=== PATIENT | male | born 1980 | race Caucasian/White ===

== ENCOUNTER 2022-12-01 08:41 | Emergency (ER) | payer OTHER, SELFPAY ==
--- NOTE | ~2022-12-01 | XR_ITS ---
EXAMINATION: XR_RIBSBI_CR DATE: 12/01/2022 09:38 INDICATION: Injury to the anterior right ribs TECHNIQUE: 3 views of the right ribs and 3 views of the left ribs were obtained. COMPARISON: Chest radiograph dated 05/16/2019 FINDINGS: No rib fractures identified. Lungs are clear with no focal airspace opacities, pulmonary edema, pleur al effusion or pneumothorax. Cardiomediastinal silhouette is normal. Old healed fracture deformity of the right clavicle. Findings the right acromioclavicular joint and tapering to the lateral head of t he right clavicle which could relate to prior trauma or surgery. Anchors likely for prior bicipital t enodesis along the proximal metadiaphyseal region of the right humerus. IMPRESSION: 1. No rib fracture or acute cardiopulmonary disease. Reviewed, dictated and finalized at location B.
[2022-12-01 08:45] VITALS: BP 149/84; PULSE 72; RESP 16; TEMP 36.1; O2SAT 99
--- NOTE | 2022-12-01 09:49 | ED.GENADULT ---
HPI - General Adult General Chief complaint: Trauma Stated complaint: chest injury from wakeboarding on 11/25 Time Seen by Provider: 12/01/22 08:56 Source: patient Mode of arrival: ambulatory Limitations: no limitations History of Present Illness HPI narrative: This is a 42-year-old male who presents to the ED with chief complaint of a right chest wall injury that occurred 6 days ago. He reports he was wakeboarding, caught an edge and landed with his chest on the water. States he was seen in urgent care initially and had x-rays that were negative. Reports mild improvement with steroid pack but is still having pain. Reports pain with deep breathing. Reports pain is on the right side front of the chest. Denies any further site of pain or injury. Denies abdominal pain or back pain. Related Data Allergies Allergy/AdvReac Type Severity Reaction Status Date / Time No Known Allergies Allergy Verified 12/01/22 09:13 Review of Systems Review of Systems: CONSTITUTIONAL: Denies fever, chills, or sweats. EYES: Denies visual changes, redness, or discharge. ENT: Denies rhinorrhea, congestion, sore throat, or otalgia. CARDIOVASCULAR: Denies chest pain, palpitations, or edema. RESPIRATORY: Denies cough or dyspnea. GASTROINTESTINAL: Denies abdominal pain, nausea, vomiting, or diarrhea. GENITOURINARY: Denies dysuria or hematuria. SKIN: Denies rash or itching. MUSCULOSKELETAL: Denies back pain, joint pain, or myalgia. NEUROLOGIC: Denies headache, numbness, dizziness, or weakness. PSYCHIATRIC: Denies anxiety or depression. [facility] Past Medical History Medical History (Updated 12/01/22 @ 10:01 by Ponce Sargent PA-C) Type 1 diabetes Surgical History Surgical History (System 09/27/19 @ 13:39 by Zaria Morris) H/O hand surgery right hand surgery in 2016 H/O shoulder surgery right History of mandibular surgery Family History Family History (System 09/27/19 @ 13:39 by Zaria Morris) Father Heart attack Mother Allergies Unknown Diabetes mellitus Father Family history of heart disease in male family member before age 55 Social History Social History (System 09/27/19 @ 13:39 by Zaria Morris) Smoking status: Current every day smoker Tobacco type: cigarettes Alcohol intake: never Exam Narrative: GENERAL: Well-appearing, well-nourished, and in no acute distress. HEAD: Normocephalic, atraumatic. EYES: PERRLA and EOMI. ENT: Nares clear, no rhinorrhea or epistaxis. Mucous membranes moist. Oropharynx without tonsillar hypertrophy exudate or other lesions. NECK: Supple. No adenopathy or masses. CHEST: No respiratory distress. Clear to auscultation. No wheezes rales or rhonchi. There is mild right inferior rib tenderness on the anterior side of the chest. No bruising or deformity. Equal chest expansion. Breath sounds throughout. HEART: Regular rate and rhythm. No murmur heard. Normal peripheral pulses. ABDOMEN: Soft, nontender, nondistended, normal active bowel sounds. MSK: Normal range of motion. No edema. SKIN: Warm, dry, no rash. NEURO: Alert and oriented x3. No focal deficits. PSYCH: Normal mood and affect. Course Vital Signs Vital signs: Vital Signs Temperature 97.0 F L 12/01/22 08:45 Pulse Rate 72 12/01/22 08:45 Respiratory Rate 16 12/01/22 08:45 Blood Pressure 149/84 H 12/01/22 08:45 Pulse Oximetry 99 12/01/22 08:45 Oxygen Delivery Room Air 12/01/22 08:45 Temperature 97.0 F L 12/01/22 08:45 Pulse Rate 74 12/01/22 10:18 Respiratory Rate 17 12/01/22 10:18 Blood Pressure 139/87 12/01/22 10:18 Pulse Oximetry 97 12/01/22 10:18 Oxygen Delivery Room Air 12/01/22 08:45 Medical Decision Making [facility] Narrative Medical decision making narrative: This is a 42-year-old male who presents to the ED with chief complaint of right rib pain after an injury that occurred last week. Vitals are stable. He has point tenderness to the right anterior inferi
[2022-12-01 10:18] VITALS: BP 139/87; PULSE 74; RESP 17; O2SAT 97
== END 2022-12-01 10:20 | disposition home or self-care (01) ==
PROVIDERS: Emergency Provider Physician Assistant; PCP Family Medicine
DX: S29.9XXA Unspecified injury of thorax, initial encounter (principal); E10.9 Type 1 diabetes mellitus without complications; F17.210 Nicotine dependence, cigarettes, uncomplicated; V91.88XA Other injury due to other accident to other unpowered watercraft, initial encounter; Y93.18 Activity, surfing, windsurfing and boogie boarding
CPT/HCPCS: 71110; 99283

== ENCOUNTER 2023-09-09 09:45 | Outpatient (CLI) | payer OTHER, SELFPAY ==
[2023-09-09 10:17] LABS: Alanine Aminotransferase 37 U/L (6-50); Albumin Level 4.7 g/dL (3.5-5.1); Alkaline Phosphatase 88 U/L (38-126); Anion Gap 6 mmol/L (8-16); Aspartate Amino Transferase 36 U/L (17-59); Bilirubin,Total 0.7 mg/dL (0.2-1.3); Blood Urea Nitrogen 16 mg/dL (9-20); Calcium 9.7 mg/dL (8.4-10.2); Carbon Dioxide 27 mmol/L (22-30); Chloride 104 mmol/L (98-107); Cholesterol 189 mg/dL (0-200); Estimated Glomerular Filt Rate > 60; Glucose 219 mg/dL (65-110); HDL Direct 39 mg/dL; Potassium 4.5 mmol/L (3.4-5.0); Sodium 137 mmol/L (137-145); Triglycerides 120 mg/dL (<150)
[2023-09-09 10:28] LABS: LDL Cholesterol Direct 121 mg/dL
[2023-09-09 10:53] LABS: Free T4 Free Thyroxine 1.17 ng/mL (0.78-2.19)
[2023-09-09 15:35] LABS: Creatinine Urine 44.9 mg/dL
[2023-09-09 16:06] LABS: MALB Creatinine Ratio < 13.4 mg/g (0-30); Microalbumin Urine Random < 6.0 mg/L (0-16.7)
[2023-09-12 20:33] LABS: Glutamic acid decarboxylase AA <5 IU/mL (<5)
[2023-09-14 07:23] LABS: C-Peptide <0.10 ng/mL (0.80-3.85)
== END 2023-09-09 09:46 | disposition home or self-care (01) ==
LOC: ANHLAB 09:46
PROVIDERS: PCP Family Medicine; Visit Provider Internal Medicine
DX: E10.9 Type 1 diabetes mellitus without complications (principal)
CPT/HCPCS: 36415; 80053; 80061; 82043; 84439; 84443; 84681; 86341

== ENCOUNTER 2024-12-20 10:53 | Outpatient (CLI) | payer OTHER, SELFPAY ==
--- OUTSIDE RECORDS SUMMARY | 2024-12-20 11:44 | XMS_ITS | Clinical Summary ---
Author Organization [facility] Address [address] [place] [id number] Care Team Providers Care Live In Housekeeper Nanny Name Role Phone Herman Ferguson MD Primary Care Provider [phone] Allergies No known active allergies Medications TRESIBA 200 unit/mL (3 mL) pen for injection INJECT 50 UNITS (0.25 ML) SUBCUTANEOUSLY DAILY 3 Active benzonatate (TESSALON) 100 mg capsuleIndicat ions:Cough Take 1 capsule (100 mg total) by mouth 3 (three) times a day as needed for cough 42 capsule 5 Active albuterol HFA (PROVENTIL HFA,VENTOLIN HFA,PROAIR HFA) 90 mcg/actuation inhalerIndicat ions:Wheezing Inhale 2 puffs every 6 (six) hours as needed for wheezing or shortness of breath 18 g 5 Active Active Problems No known active problems Social History Tobacco Use Types Packs/Day Years Used Date Smoking Tobacco: Never Assessed Sex and Gender Information Value Date Recorded Sex Assigned at Not on file Legal Sex 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 Gender Identity Not on file Sexual Orientation Not on file Obstetrics History Last Filed Vital Signs Vital Sign Reading Time Taken Comments Blood Pressure 138/82 07/18/2024 5:13 PM [employer]ING MACHINE ADJUSTER Pulse 78 07/18/2024 5:13 PM [employer]SEM[employer]ING MACHINE ADJUSTER Temperature 37.1 C (98.7 F) 07/18/2024 5:13 PM [employer]SEM[employer]ING MACHINE ADJUSTER Respiratory Rate 20 07/18/2024 5:13 PM [employer] ASSEMBLING MACHINE ADJUSTER Oxygen Saturation 97% 07/18/2024 5:13 PM CAR[employer]GE ASSEMBLING MACHINE ADJUSTER Inhaled Oxygen Concentration - - Weight 86.2 kg (190 lb) 07/18/2024 5:13 PM CARTRIDGE ASSEMBLING MACHINE ADJUSTER Height 185.4 cm (6' 1) 12/01/2022 8:17 AM CDT Body Mass Index 25.07 12/01/2022 8:17 AM CDT Plan of Treatment Health Maintenance Due Date Last Done Comments Depression Screening 1980 Hepatitis C Screening 1980 DTaP/Tdap/Td Vaccine (1 - Tdap) 1991 Varicella Vaccines (1 of 2 - 13+ 2-dose series) 1993 Hepatitis B Screening 1998 Regular Well Visit/Exam 18-64 1998 Influenza Vaccine (Season Ended) 2025 HPV Vaccines Aged Out No longer eligi ble based on patient's age to complete this topic Pneumococcal vaccine <65 Aged Out No longer eligible based on patient's age to complete this topic Insurance [facility] Address: [facility] [address] [place] [address] [facility] Address: [facility] [id number] [place] [address] Care Teams Live In Housekeeper Nanny Relationship Specialty Start Date End Date Herman Ferguson MD PCP - General Family Medicine 11/25/22
--- OUTSIDE RECORDS SUMMARY | 2024-12-20 11:44 | XMS_ITS | Referral Summary ---
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 Gender Identity Not on file Sexual Orientation Not on file Last Filed Vital Signs Vital Sign Reading Time Taken Comments Blood Pressure 138/82 07/18/2024 5:13 PM SOCIAL SERVICES DESIGNEE Pulse 78 07/18/2024 5:13 PM SOCIAL SERVICES DESIGNEE Temperature 37.1 C (98.7 F) 07/18/2024 5:13 PM SOCIAL SERVICES DESIGNEE Respiratory Rate 20 07/18/2024 5:13 PM SOCIAL SERVICES DESIGNEE Oxygen Saturation 97% 07/18/2024 5:13 PM SOCIAL SERVICES DESIGNEE Inhaled Oxygen Concentration - - Weight 86.2 kg (190 lb) 07/18/2024 5:13 PM SOCIAL SERVICES DESIGNEE Height 185.4 cm (6' 1) 12/01/2022 8:17 AM CDT Body Mass Index 25.07 12/01/2022 8:17 AM CDT Plan of Treatment Not on file Insurance [employer] Care Teams [employer] Ump[employer] Relationship Specialty Start Date End Date Herman Ferguson MD PCP - General Family Medicine 11/25/22
[2024-12-20 12:06] LABS: Alanine Aminotransferase 39 U/L (6-50); Albumin Level 4.4 g/dL (3.5-5.1); Alkaline Phosphatase 60 U/L (38-126); Anion Gap 10 mmol/L (4-12); Aspartate Amino Transferase 45 U/L (17-59); Bilirubin,Total 0.8 mg/dL (0.2-1.3); Blood Urea Nitrogen 21 mg/dL (9-20); Calcium 9.4 mg/dL (8.4-10.2); Carbon Dioxide 26 mmol/L (22-30); Chloride 103 mmol/L (98-107); Cholesterol 176 mg/dL (0-200); Estimated Glomerular Filt Rate > 60; Glucose 143 mg/dL (65-110); HDL Direct 48 mg/dL; Potassium 3.9 mmol/L (3.4-5.0); Sodium 139 mmol/L (137-145); Total Protein 7.4 g/dL (6.3-8.2); Triglycerides 70 mg/dL (<150)
[2024-12-20 12:16] LABS: Creatinine Urine 71.7 mg/dL
[2024-12-20 12:18] LABS: LDL Cholesterol Direct 94 mg/dL
[2024-12-20 12:19] LABS: Free T4 Free Thyroxine 1.18 ng/dL (0.78-2.19); Vitamin D 25 Hydroxy 41.1 ng/mL
[2024-12-20 12:21] LABS: MALB Creatinine Ratio < 8.4 mg/g (0-30); Microalbumin Urine Random < 6.0 mg/L (0-16.7)
== END 2024-12-20 10:54 | disposition home or self-care (01) ==
LOC: ANHLAB 10:55
PROVIDERS: PCP Family Medicine; Visit Provider Internal Medicine
DX: E10.65 Type 1 diabetes mellitus with hyperglycemia (principal); E78.5 Hyperlipidemia, unspecified; Z71.3 Dietary counseling and surveillance; Z46.81 Encounter for fitting and adjustment of insulin pump; I10 Essential (primary) hypertension; E56.9 Vitamin deficiency, unspecified
CPT/HCPCS: 36415; 80053; 80061; 82043; 82306; 84439; 84443